=== PATIENT | female | born 1970 | race Caucasian/White ===

== ENCOUNTER 2016-06-03 19:21 | Emergency (ER) | payer OTHER ==
[2016-06-03 20:47] LABS: BILIRUBIN NEGATIVE (NEGATIVE); BLOOD 1+ Ery/uL (NEGATIVE); CLARITY CLEAR (CLEAR); COLOR STRAW (YELLOW); GLUCOSE (U) NORMAL (NORMAL); KETONE (U) NEGATIVE (NEGATIVE); LEUKOCYTES NEGATIVE Leu/uL (NEGATIVE); NITRITE NEGATIVE (NEGATIVE); PROTEIN NEGATIVE (NEGATIVE); UROBILINOGEN 0.2 mg/dL (0.2-1.0); pH 6.5 (5.0-9.0)
[2016-06-03 20:49] LABS: BASOPHIL 0.6 % (0-2); EOSINOPHIL 2.9 % (0-5); HCT 39.9 % (37.0-47.0); HGB 13.6 g/dl (12.5-16.0); LYMPHOCYTE 33.4 % (15-48); MCH 30.8 pg (25.0-31.0); MCHC 34.1 g/dL (32.0-36.0); MCV 90.5 fL (78.0-100.0); MONOCYTE 6.8 % (0-12); NEUTROPHIL 56.3 % (41-80); PLT 195 K/uL (150-400); RBC 4.41 M/uL (4.20-5.40); WBC 6.7 K/uL (4.0-10.5)
[2016-06-03 21:04] LABS: BACTERIA TRACE; URINARY WBC RARE
[2016-06-03 21:10] LABS: ALBUMIN 4.3 g/dL (3.5-5.0); BILIRUBIN - TOTAL 0.2 mg/dL (0.1-1.0); CREATININE 0.7 mg/dL (0.5-1.0); GLOBULIN (CALCULATION) 2.8 g/dL (2.2-4.2); POTASSIUM 3.9 mmol/L (3.5-5.1); TOTAL PROTEIN 7.1 g/dL (6.4-8.3)
== END 2016-06-03 22:58 | disposition left against medical advice (07) ==
LOC: FER 19:21
PROVIDERS: Emergency Medicine
DX: R10.31 Right lower quadrant pain (principal); R11.0 Nausea; I10 Essential (primary) hypertension; F17.200 Nicotine dependence, unspecified, uncomplicated; Z79.899 Other long term (current) drug therapy; Z90.49 Acquired absence of other specified parts of digestive tract; Z98.890 Other specified postprocedural states
CPT/HCPCS: 36415; 80053; 81001; 83690; 85025; J1885

== ENCOUNTER 2016-06-26 10:38 | Emergency (ER) | payer OTHER ==
[2016-06-26 11:05] LABS: BILIRUBIN NEGATIVE (NEGATIVE); BLOOD 1+ Ery/uL (NEGATIVE); CLARITY CLEAR (CLEAR); COLOR YELLOW (YELLOW); GLUCOSE (U) NORMAL (NORMAL); KETONE (U) NEGATIVE (NEGATIVE); LEUKOCYTES NEGATIVE Leu/uL (NEGATIVE); NITRITE NEGATIVE (NEGATIVE); PROTEIN NEGATIVE (NEGATIVE); UROBILINOGEN 0.2 mg/dL (0.2-1.0); pH 7.5 (5.0-9.0)
[2016-06-26 11:14] LABS: URINARY RBC RARE
[2016-06-26 11:30] LABS: BASOPHIL 0.3 % (0-2); EOSINOPHIL 1.8 % (0-5); HGB 14.2 g/dl (12.5-16.0); LYMPHOCYTE 24.5 % (15-48); MCHC 33.8 g/dL (32.0-36.0); MCV 88.8 fL (78.0-100.0); MONOCYTE 5.5 % (0-12); MPV 8.6 fL (6.0-9.5); NEUTROPHIL 67.9 % (41-80); PLT 244 K/uL (150-400); RBC 4.73 M/uL (4.20-5.40); RDW 12.9 % (11.5-14.0); WBC 7.3 K/uL (4.0-10.5)
[2016-06-26 11:48] LABS: ALBUMIN 4.2 g/dL (3.5-5.0); BILIRUBIN - TOTAL 0.2 mg/dL (0.1-1.0); CREATININE 0.6 mg/dL (0.5-1.0); GLOBULIN (CALCULATION) 2.9 g/dL (2.2-4.2); POTASSIUM 4.1 mmol/L (3.5-5.1); TOTAL PROTEIN 7.1 g/dL (6.4-8.3)
== END 2016-06-26 12:34 | disposition home or self-care (01) ==
LOC: FER 10:38
PROVIDERS: Internal Medicine
DX: N81.10 Cystocele, unspecified (principal); F17.210 Nicotine dependence, cigarettes, uncomplicated; Z88.0 Allergy status to penicillin; Z88.1 Allergy status to other antibiotic agents; Z88.5 Allergy status to narcotic agent; Z88.8 Allergy status to other drugs, medicaments and biological substances; Z90.710 Acquired absence of both cervix and uterus
CPT/HCPCS: 36415; 80053; 81001; 82150; 83690; 85025; J1170; J2405

== ENCOUNTER 2016-08-15 14:43 | Emergency (ER) | payer OTHER ==
[2016-08-15 15:46] LABS: BILIRUBIN NEGATIVE (NEGATIVE); BLOOD 2+ Ery/uL (NEGATIVE); CLARITY CLEAR (CLEAR); COLOR YELLOW (YELLOW); GLUCOSE (U) NORMAL (NORMAL); KETONE (U) NEGATIVE (NEGATIVE); LEUKOCYTES NEGATIVE Leu/uL (NEGATIVE); NITRITE NEGATIVE (NEGATIVE); PROTEIN NEGATIVE (NEGATIVE); SPECIFIC GRAVITY <=1.005 (1.001-1.030); UROBILINOGEN 0.2 mg/dL (0.2-1.0)
[2016-08-15 16:10] LABS: BASOPHIL 0.2 % (0-2); EOSINOPHIL 1.9 % (0-5); HCT 42.7 % (37.0-47.0); HGB 14.8 g/dl (12.5-16.0); MCH 30.4 pg (25.0-31.0); MCHC 34.7 g/dL (32.0-36.0); MCV 87.7 fL (78.0-100.0); MONOCYTE 5.5 % (0-12); NEUTROPHIL 64.4 % (41-80); PLT 203 K/uL (150-400); RBC 4.87 M/uL (4.20-5.40); RDW 12.9 % (11.5-14.0); WBC 8.3 K/uL (4.0-10.5)
[2016-08-15 16:31] LABS: ALBUMIN 4.3 g/dL (3.5-5.0); BILIRUBIN - TOTAL 0.2 mg/dL (0.1-1.0); CREATININE 0.7 mg/dL (0.5-1.0); GLOBULIN (CALCULATION) 3.2 g/dL (2.2-4.2); TOTAL PROTEIN 7.5 g/dL (6.4-8.3)
== END 2016-08-15 17:40 | disposition home or self-care (01) ==
LOC: FER 14:43
PROVIDERS: Internal Medicine
DX: G89.29 Other chronic pain (principal); R10.84 Generalized abdominal pain; R11.0 Nausea; I10 Essential (primary) hypertension; F17.210 Nicotine dependence, cigarettes, uncomplicated; Z87.19 Personal history of other diseases of the digestive system; Z88.0 Allergy status to penicillin; Z88.1 Allergy status to other antibiotic agents; Z88.5 Allergy status to narcotic agent; Z79.899 Other long term (current) drug therapy; Z90.49 Acquired absence of other specified parts of digestive tract; Z90.89 Acquired absence of other organs
CPT/HCPCS: 36415; 74022; 80053; 81001; 82150; 83690; 85025; J1170; J1885; J2405

== ENCOUNTER 2016-09-13 15:38 | Emergency (ER) | payer OTHER ==
[2016-09-13 15:58] LABS: BILIRUBIN NEGATIVE (NEGATIVE); BLOOD 2+ Ery/uL (NEGATIVE); CLARITY CLEAR (CLEAR); COLOR YELLOW (YELLOW); GLUCOSE (U) NORMAL (NORMAL); KETONE (U) NEGATIVE (NEGATIVE); LEUKOCYTES NEGATIVE Leu/uL (NEGATIVE); NITRITE NEGATIVE (NEGATIVE); PROTEIN NEGATIVE (NEGATIVE); SPECIFIC GRAVITY 1.015 (1.001-1.030); UROBILINOGEN 0.2 mg/dL (0.2-1.0); pH 5.5 (5.0-9.0)
[2016-09-13 15:59] LABS: URINARY RBC RARE; URINARY WBC RARE
[2016-09-13 16:17] LABS: BASOPHIL 0.5 % (0-2); EOSINOPHIL 3.3 % (0-5); HGB 13.6 g/dl (12.5-16.0); LYMPHOCYTE 35.7 % (15-48); MCH 30.8 pg (25.0-31.0); MCHC 34.9 g/dL (32.0-36.0); MCV 88.2 fL (78.0-100.0); MONOCYTE 6.1 % (0-12); MPV 8.5 fL (6.0-9.5); NEUTROPHIL 54.4 % (41-80); PLT 205 K/uL (150-400); RBC 4.42 M/uL (4.20-5.40); RDW 12.9 % (11.5-14.0); WBC 6.6 K/uL (4.0-10.5)
[2016-09-13 16:38] LABS: BILIRUBIN - TOTAL 0.3 mg/dL (0.1-1.0); CREATININE 0.7 mg/dL (0.5-1.0); GLOBULIN (CALCULATION) 2.8 g/dL (2.2-4.2); TOTAL PROTEIN 6.8 g/dL (6.4-8.3)
== END 2016-09-13 18:14 | disposition home or self-care (01) ==
LOC: FER 15:38
PROVIDERS: Emergency Medicine
DX: R10.33 Periumbilical pain (principal); R11.0 Nausea; I10 Essential (primary) hypertension; Z79.899 Other long term (current) drug therapy; Z90.710 Acquired absence of both cervix and uterus; Z90.49 Acquired absence of other specified parts of digestive tract
CPT/HCPCS: 36415; 80053; 81001; 83690; 85025; J1885

== ENCOUNTER → 2020-12-04 | Day surgery (SDC) | payer OTHER ==
[~2020-12-04] VITALS: Ht 162.6 cm; Wt 75.1 kg
[~2020-12-04] MED LIST: BACTRIM DS TAB1 EACH PO; CIPRO500 MG PO; COLACE100 MG PO; ESTRACE0.5 MG PO; ESTRACE1 MG PO; ESTRADIOL PO; FLEXERIL10 MG PO; HYDROCODON-ACE1 EAC2 PO; HYDROCODONE-APA1 TAB PO; HYDROXYZINE HCL50 MG PO; LOPRESSOR25 MG PO; MACROBID100 MG PO; MOTRIN600 MG PO; MYLICON80 MG PO; NORCO 5-325 TA1 EACH PO; ONDANSETRON ODT4 MG SL; OXY-IR 5MG5 MG PO; PERCOCET 5-3251 EACH PO; PHENERGAN25 M1 PO; SILADRYL12.5 MG/5 PO; TOPROL XL 25MG25 MG PO; ZOFRAN4 MG PO
[2020-12-04 07:28] LABS: BUN/CREAT RATIO (CALC) 14.8 RATIO; CREATININE 0.54 mg/dL (0.51-0.95); POTASSIUM 3.4 mmol/L (3.5-5.1)
== END | disposition home or self-care (01) ==
LOC: FAS 06:35
PROVIDERS: Anesthesiology
DX: K43.0 Incisional hernia with obstruction, without gangrene (principal); K25.9 Gastric ulcer, unspecified as acute or chronic, without hemorrhage or perforation; K21.9 Gastro-esophageal reflux disease without esophagitis; F39 Unspecified mood [affective] disorder; I10 Essential (primary) hypertension; M19.90 Unspecified osteoarthritis, unspecified site; F41.9 Anxiety disorder, unspecified; R07.9 Chest pain, unspecified; G89.29 Other chronic pain; F32.9 Major depressive disorder, single episode, unspecified; E78.00 Pure hypercholesterolemia, unspecified; G47.00 Insomnia, unspecified; K58.9 Irritable bowel syndrome, unspecified; D17.20 Benign lipomatous neoplasm of skin and subcutaneous tissue of unspecified limb; M06.9 Rheumatoid arthritis, unspecified; G43.909 Migraine, unspecified, not intractable, without status migrainosus; M54.40 Lumbago with sciatica, unspecified side; E55.9 Vitamin D deficiency, unspecified; J30.9 Allergic rhinitis, unspecified; F17.210 Nicotine dependence, cigarettes, uncomplicated; Z79.899 Other long term (current) drug therapy; Z88.5 Allergy status to narcotic agent; Z88.0 Allergy status to penicillin; Z88.8 Allergy status to other drugs, medicaments and biological substances; Z87.01 Personal history of pneumonia (recurrent)
CPT/HCPCS: 36415; 80048; J1100; J1170; J1644; J2250; J2405; J2704; J2710; J3010; J7120